=== PATIENT | female | born 1945 | race Two or more races ===

== ENCOUNTER 2020-03-22 14:26 | Emergency (ER) | payer MEDICARE, OTHER ==
[~2020-03-22] VITALS: Ht 162.6 cm; Wt 81.6 kg
--- NOTE | 2020-03-22 15:28 | NUR ---
DR calhoun seen and examined the pt.
[2020-03-22] MEDS ORDERED: BP pill (15:32)
[2020-03-22] MEDS ORDERED: IV NORMAL SALINE 1000 ML BAG IV ONE (15:45)
--- NOTE | 2020-03-22 16:52 | NUR ---
Pt's tj Garciaphone #[phone].
[2020-03-22 17:24] LABS: *BILIRUBIN,URIN NEGATIVE (NEGATIVE); *BLOOD, URINE NEGATIVE (NEGATIVE); *CLARITY,URINE CLEAR (CLEAR); *COLOR,URINE YELLOW (YELLOW); *KETONES,URINE NEGATIVE (NEGATIVE); *UROBILINOGEN,URINE 0.2 E.U./dl (NORMAL); LEUKOCYTE ESTERASE ,URINE NEGATIVE (NEGATIVE); NITRITE, URINE NEGATIVE (NEGATIVE); UGLUCOSE NEGATIVE (NEGATIVE)
[2020-03-22 17:28] LABS: BILIRUBIN,DIRECT 0.1 mg/dL (0.0-0.2); BILIRUBIN,TOTAL 0.6 mg/dL (0.2-1.0); CREATININE 1.3 mg/dL (0.6-1.3); TOTAL PROTEIN, SERUM 7.9 g/dL (6.4-8.2)
--- NOTE | 2020-03-22 17:50 | NUR ---
PATIENT MOVED TO ROOM 04A.
[2020-03-22] MEDS ORDERED: ASPIRIN 325 MG TABLET PO ONE (18:15)
[2020-03-22 18:22] LABS: BASOPHILS # (AUTO) 0.3 K/uL (0.0-8.0); EOSINOPHILS # (AUTO) 0.1 K/uL (0.0-0.7); EOSINOPHILS % (AUTO) 1.3 % (0.0-7.0); HEMOGLOBIN 14.2 g/dL (10.9-14.3); LYMPHOCYTES # (AUTO) 1.8 K/uL (20.0-40.0); MEAN CORPUSCULAR HEMOGLOBIN 30.1 uug (24.7-32.8); MEAN CORPUSCULAR HGB CONC 34 g/dL (32.3-35.6); MEAN CORPUSCULAR VOLUME 88.6 fL (75.5-95.3); MONOCYTES # (AUTO) 0.4 K/uL (2.0-10.0); MONOCYTES % (AUTO) 5.5 % (0.0-11.0); NEUTROPHILS # (AUTO) 5.2 K/uL (1.8-8.9); NEUTROPHILS % (AUTO) 66.2 % (38.5-71.5); RED BLOOD CELL COUNT(AUTO) 4.74 MIL/uL (3.63-4.92); WHITE BLOOD COUNT (AUTO) 7.8 K/uL (3.8-11.8)
[2020-03-22] MEDS ORDERED: ASPIRIN 325 MG TABLET ONE (18:29)
[2020-03-22 18:38] LABS: PLATELET COUNT (AUTO) 198 K/uL (179-408)
[2020-03-22 18:45] VITALS: BP 172/89
--- NOTE | 2020-03-22 18:49 | NUR ---
Patient does not wish to proceed with medical care recommended by Dr. Bernal. Patient given information related to possible complications, up to and including , which could occur as a result of leaving the hospital at this time. Patient daughter Magdalene verbalizes understanding of risks involved due to leaving against medical advice. Patient has signed AMA form.
[2020-03-23 00:06] LABS: EOSINOPHILS % (MANUAL) 2 % (0-8); LYMPHOCYTES % (MANUAL) 28 % (20-40); MONOCYTES % (MANUAL) 6 % (2-10); NEUTROPHILS % (MANUAL) 64 % (42-75)
== END 2020-03-22 18:53 | disposition left against medical advice (07) ==
LOC: EDBD 14:30 → ER 14:30
DX: G45.9 Transient cerebral ischemic attack, unspecified (principal); Z86.73 Personal history of transient ischemic attack (TIA), and cerebral infarction without residual deficits; Z20.828 Contact with and (suspected) exposure to other viral communicable diseases; J98.11 Atelectasis; R94.31 Abnormal electrocardiogram [ECG] [EKG]
CPT/HCPCS: 36415; 70030-TC; 70450; 71045; 83605; 84443; 85025; 85730; 87040; 87086; 93005; A4663

== ENCOUNTER 2022-01-10 10:42 | Inpatient (IN) | payer MEDICARE, OTHER ==
[~2022-01-10] VITALS: Ht 170.2 cm; Wt 95.3 kg
[2022-01-10] VITALS (8 sets, daily range): BP systolic 116–149; BP diastolic 61–106
[~2022-01-10 10:42] MED LIST: BP pill
[2022-01-10 11:09] LABS: *BILIRUBIN,URIN NEGATIVE (NEGATIVE); *CLARITY,URINE CLEAR (CLEAR); *COLOR,URINE YELLOW (YELLOW); *KETONES,URINE 1+ (NEGATIVE); *UROBILINOGEN,URINE >=8.0 E.U./dl (NORMAL); LEUKOCYTE ESTERASE ,URINE 3+ (NEGATIVE); NITRITE, URINE POSITIVE (NEGATIVE); UGLUCOSE NEGATIVE (NEGATIVE)
[2022-01-10 11:12] LABS: *BLOOD, URINE TRACE (NEGATIVE)
[2022-01-10 11:17] LABS: HEMATOCRIT 39.6 % (31.2-41.9); PLATELET COUNT (AUTO) 362 K/uL (179-408)
[2022-01-10 11:27] LABS: CREATININE 0.6 mg/dL (0.6-1.3); POTASSIUM 3.2 mmol/L (3.5-5.1)
[2022-01-10] MEDS ORDERED: METOPROLOL (11:35)
[2022-01-10] MEDS ORDERED: MUL (11:35)
[2022-01-10] MEDS ORDERED: FUROSEMIDE (11:35)
[2022-01-10] MEDS ORDERED: ELIQ (11:35)
[2022-01-10] MEDS ORDERED: TAMSULOSIN (11:35)
[2022-01-10] MEDS ORDERED: METFORMIN (11:35)
--- NOTE | 2022-01-10 11:36 | NUR ---
"Plan to admit" per Dr Medina. ER registration/admitting staff Sterling notified.
[2022-01-10 11:47] LABS: BILIRUBIN,DIRECT 0.3 mg/dL (0.0-0.2); BILIRUBIN,TOTAL 1.1 mg/dL (0.2-1.0); TOTAL PROTEIN, SERUM 6.9 g/dL (6.4-8.2)
--- NOTE | 2022-01-10 12:09 | NUR ---
Kaylah-anal care done by PERLA Milton and 2 nursing students.
[2022-01-10] MEDS ORDERED: CEFTRIAXONE 1 G in IV DEXTROSE 5% 50 ML IV ONE (12:30)
[2022-01-10] MEDS ORDERED: FUROSEMIDE 40 MG/4 ML VIAL IV ONE (12:30)
[2022-01-10] MEDS: METOPROLOL TARTRATE 50 MG TABLET PO SCH ×2 (12:30→17:00)
[2022-01-10] MEDS: BLOOD SUGAR DIAGNOSTIC 1 EACH STRIP VI SCH ×5 (12:30→23:07)
[2022-01-10] MEDS ORDERED: LABETALOL HCL 100 MG/20 ML VIAL IV PRN (12:30)
[2022-01-10] MEDS ORDERED: INSULIN REGULAR, HUMAN 300 UNIT/3 ML VIAL SQ PRN (12:30)
[2022-01-10] MEDS ORDERED: MORPHINE SULFATE 2 MG/1 ML DISP.SYRIN IV PRN (12:30)
[2022-01-10] MEDS ORDERED: ONDANSETRON 4 MG/2 ML VIAL IV PRN (12:30)
[2022-01-10] MEDS ORDERED: DEXTROSE 50% 50 ML DISP.SYRIN IV PRN ×2 (12:30→17:46)
[2022-01-10] MEDS ORDERED: CEFTRIAXONE /D5W 50ML IVPB **ER PYXIS IV ONE (12:31)
[2022-01-10] MEDS ORDERED: FUROSEMIDE 40 MG/4 ML VIAL ONE (12:31)
--- NOTE | 2022-01-10 12:41 | NUR ---
* NPO maintained and patient's gastrostomy tube has to be replaced or repositioned by MD before I can use this tube for oral medicines. MD notified.
--- NOTE | 2022-01-10 12:43 | NUR ---
* buoaupfhc=950 mg/dl at 1111am today. is aware.
--- NOTE | 2022-01-10 12:45 | NUR ---
Patient is more awake, eyes are tracking at this time, still non-verbal, no purposeful movements of her extremities.
[2022-01-10 13:05] LABS: BACTERIA,URINE MANY /HPF (NONE SEEN); RBC,URINE 0-3 /HPF (0-3); SQUAMOUS EPITHELIAL CELL,UR FEW /HPF (NONE SEEN)
--- NOTE | 2022-01-10 14:58 | NUR ---
Dr Scruggs made aware patient had frequent periods of Afib. MD order to start Amio drip per protocol. Also, order to transfer to [facility]. will continue to monitor.
[2022-01-10] MEDS ORDERED: AMIODARONE HCL IV 150 MG in IV DEXTROSE 5% 100 ML IV ONE (16:00)
[2022-01-10] MEDS: AMIODARONE HCL IV 450 MG in IV DEXTROSE 5% 250 ML IV PRN (16:51)
[2022-01-10] MEDS: DOCUSATE SODIUM 100 MG CAPSULE PO SCH (17:00)
--- NOTE | 2022-01-10 17:21 | NUR ---
Dr Medley made aware of the events today. changed accucheck to q6. remained on NPO. Start Lovenox.
[2022-01-10] MEDS: ENOXAPARIN SODIUM 100 MG/ML DISP.SYRIN SQ SCH (17:55)
--- NOTE | 2022-01-10 18:10 | NUR ---
Patient was admitted to Telemetry unit from ER. Pt. is nonverbal and admitted due to dislodge gastrostomy tube. Pt. is not able to move extremities. Has Galo catheter and yellow color urine noted in the bag. All personal belonging documented. will continue monitoring the resident. Addendum: 01/10/22 at 1923 by CORTNEY AZUL RN PT. was admitted at 1400 H
--- NOTE | 2022-01-10 19:30 | NUR ---
No new events noted. Patient remained the same on monitor. Will endorse for continuity of care.
[2022-01-10] MEDS: FUROSEMIDE 40 MG/4 ML VIAL IV SCH (20:18)
[2022-01-10] MEDS ORDERED: HEPARIN SODIUM,PORCINE 5,000 UNITS/ML VIAL SQ SCH (21:00)
--- NOTE | 2022-01-10 21:21 | NUR ---
INCENTIVE SPIROMETER ORDERS REVIEWED. DIRECTIONS GIVEN TO PATIENT. PATIENT IS NON VERBAL AND DID NOT SHOW EVIDENCE OF UNDERSTANDING. WILL LIKELY NEED CONTINUED TEACHING AND DIRECTIONS IN USING INCENTIVE SPIROMETER.
[2022-01-10] MEDS: INSULIN REGULAR, HUMAN 300 UNIT/3 ML VIAL SQ PRN (23:09)
[2022-01-11] VITALS (7 sets, daily range): BP systolic 120–168; BP diastolic 72–100
[2022-01-11] MEDS: AMIODARONE HCL IV 450 MG in IV DEXTROSE 5% 250 ML IV PRN ×2 (02:15→15:41)
[2022-01-11] MEDS: BLOOD SUGAR DIAGNOSTIC 1 EACH STRIP VI SCH ×4 (05:55→23:20)
[2022-01-11] MEDS: INSULIN REGULAR, HUMAN 300 UNIT/3 ML VIAL SQ PRN ×3 (05:56→23:22)
[2022-01-11 06:41] LABS: HEMATOCRIT 37.3 % (31.2-41.9); MEAN CORPUSCULAR HEMOGLOBIN 29.7 uug (24.7-32.8); MEAN CORPUSCULAR VOLUME 87.4 fL (75.5-95.3); PLATELET COUNT (AUTO) 361 K/uL (179-408)
[2022-01-11 07:15] LABS: CREATININE 0.7 mg/dL (0.6-1.3); PHOSPHOROUS 4.1 mg/dL (2.5-4.9); TOTAL PROTEIN, SERUM 6.9 g/dL (6.4-8.2)
[2022-01-11 08:13] LABS: POTASSIUM 2.7 mmol/L (3.5-5.1)
[2022-01-11] MEDS: FUROSEMIDE 40 MG/4 ML VIAL IV SCH (08:13)
[2022-01-11] MEDS: DOCUSATE SODIUM 100 MG CAPSULE PO SCH ×2 (09:00→17:00)
[2022-01-11] MEDS: METOPROLOL TARTRATE 50 MG TABLET PO SCH ×2 (09:00→17:00)
[2022-01-11] MEDS: ENOXAPARIN SODIUM 100 MG/ML DISP.SYRIN SQ SCH ×2 (09:09→21:00)
[2022-01-11] MEDS: POTASSIUM CHLORIDE 50 ML IV SCH ×4 (09:37→12:42)
--- NOTE | 2022-01-11 10:50 | NUR ---
WOUND CARE CONSULT: PT PRESENTS WITH RASH TO RT AXILLA AREA, REDNESS TO SKIN FOLDS, LARGE RAISED AREA TO RT ARM AND LEFT HEEL DRY WOUND, ALL PRESENT ON ADMISSION. DR MCFADDEN CALLED FOR DPM CONSULT. ALL SKIN PROTECTION RECOMMENDATIONS DISCUSSED WITH NURSING STAFF. FIRST STEP LOW AIRLOSS MATTRESS IS ON ORDER. DAYNA ESCOTO NOTED. IN AGREEMENT WITH PLAN OF CARE. Addendum: 01/11/22 at 1051 by SHEREEN GONCALVES RN Amended: Links added.
[2022-01-11] MEDS ORDERED: REMEDY ESSENTIAL ZINC PASTE 113 GM TOP PRN (12:00)
[2022-01-11] MEDS ORDERED: DRON400T PO (12:02)
[2022-01-11] MEDS ORDERED: METO50TA16 PO (12:02)
[2022-01-11] MEDS ORDERED: METF-440 PO (12:02)
[2022-01-11] MEDS ORDERED: FURO20TA4 PO (12:02)
[2022-01-11] MEDS ORDERED: APIX5TAB PO (12:02)
[2022-01-11] MEDS ORDERED: TAMS-3 PO (12:06)
[2022-01-11] MEDS ORDERED: ROSU10TA2 PO (12:06)
[2022-01-11] MEDS ORDERED: MAGN400T8 PO (12:16)
[2022-01-11] MEDS: CEFTRIAXONE 1 G in IV DEXTROSE 5% 50 ML IV SCH ×4 (13:00→14:27)
[2022-01-11] MEDS: CLOTRIMAZOLE 1% CREAM 30 GM TUBE TOP SCH ×2 (13:40→20:58)
[2022-01-11] MEDS: NYSTATIN SUSPENSION 5 ML LIQUID UDC PO SCH ×3 (13:40→21:00)
[2022-01-11] MEDS: hydrALAZINE HCL 20 MG/1 ML VIAL IV PRN (15:08)
--- NOTE | 2022-01-11 15:54 | NUR ---
Updated Dr. Andrews regarding Amiodarone drip. Per , we will continue Amiodarone until further order.
--- NOTE | 2022-01-11 19:02 | NUR ---
Pt. is stayed stable during the shift and no significant changes noted, Oral care provided. Low air loss mattress was provided for patient comfort. Pt. will be on Amiodarone drip per Dr. Juliana castellon.
[2022-01-11] MEDS: REMEDY ESSENTIAL ZINC PASTE 113 GM TOP SCH (20:59)
[2022-01-12] VITALS: BP 150/58
[2022-01-12 04:00] VITALS: BP 151/67
[2022-01-12] MEDS: AMIODARONE HCL IV 450 MG in IV DEXTROSE 5% 250 ML IV PRN (04:17)
[2022-01-12] MEDS: BLOOD SUGAR DIAGNOSTIC 1 EACH STRIP VI SCH ×3 (05:15→17:36)
[2022-01-12] MEDS: INSULIN REGULAR, HUMAN 300 UNIT/3 ML VIAL SQ PRN (05:16)
[2022-01-12 05:45] LABS: HEMATOCRIT 38.8 % (31.2-41.9); MEAN CORPUSCULAR HEMOGLOBIN 29.6 uug (24.7-32.8); MEAN CORPUSCULAR VOLUME 87.6 fL (75.5-95.3); PLATELET COUNT (AUTO) 333 K/uL (179-408)
[2022-01-12 06:23] LABS: CARBON DIOXIDE 35 mmol/L (21-32); CHLORIDE 97 mmol/L (98-107); CREATININE 0.5 mg/dL (0.6-1.3); GLUCOSE 144 mg/dL (74-106); MAGNESIUM 1.8 mg/dL (1.8-2.4); PHOSPHOROUS 3.1 mg/dL (2.5-4.9); UREA NITROGEN, BLOOD 10 mg/dL (7-18)
[2022-01-12 06:32] LABS: POTASSIUM 2.8 mmol/L (3.5-5.1)
--- NOTE | 2022-01-12 06:41 | NUR ---
pt's K is 2.8; pt having NSVT x2; referred to Dr Scruggs; new orders made.
[2022-01-12 07:33] VITALS: BP 156/82
[2022-01-12] MEDS: POTASSIUM CHLORIDE 50 ML IV SCH ×8 (07:35→16:00)
[2022-01-12] MEDS: DOCUSATE SODIUM 100 MG CAPSULE PO SCH ×2 (08:16→16:01)
[2022-01-12] MEDS: CLOTRIMAZOLE 1% CREAM 30 GM TUBE TOP SCH ×2 (08:17→16:01)
[2022-01-12] MEDS: METOPROLOL TARTRATE 50 MG TABLET PO SCH ×2 (08:17→16:01)
[2022-01-12] MEDS: REMEDY ESSENTIAL ZINC PASTE 113 GM TOP SCH ×2 (08:17→21:00)
[2022-01-12] MEDS: NYSTATIN SUSPENSION 5 ML LIQUID UDC PO SCH ×4 (08:17→21:05)
[2022-01-12] MEDS: ENOXAPARIN SODIUM 100 MG/ML DISP.SYRIN SQ SCH ×2 (08:24→21:07)
[2022-01-12] MEDS ORDERED: POTASSIUM CHLORIDE 50 ML IV SCH (08:45)
[2022-01-12 11:31] VITALS: BP 170/119
[2022-01-12] MEDS: hydrALAZINE HCL 20 MG/1 ML VIAL IV PRN (12:15)
--- NOTE | 2022-01-12 12:51 | NUR ---
Due to patient being NPO. Coverage not given for current blood sugars at 165. Will endorse information.
--- NOTE | 2022-01-12 15:17 | NUR ---
For myostatin suspension, soaking bedside toothbrush with solution and suctioning at same time to prevent any aspiration.
[2022-01-12 15:41] VITALS: BP 125/67
--- NOTE | 2022-01-12 17:49 | NUR ---
Adonis clay bags completed. Dr. Scruggs notified. Orders to continue Amiodarone if patient converts back to A-Fib. Will endorse information to PM nurse.
[2022-01-12 20:00] VITALS: BP 166/79
[2022-01-13] VITALS: BP 154/82
[2022-01-13 04:00] VITALS: BP 159/72
[2022-01-13] MEDS: BLOOD SUGAR DIAGNOSTIC 1 EACH STRIP VI SCH ×4 (06:00→18:00)
--- NOTE | 2022-01-13 06:00 | NUR ---
--PT CONT. WITH STABLE VS. PT HAS BEEN AFEBRILE. PT HAS BEEN NON-VERBAL/DOESN'T FOLLOW SIMPLE COMMDS. PT OPENS EYES. IV H.L I/P.PT IS HAS MORBITY . AM CARE GIVEN. GT SITE CLAMPED AND INTACT. F/C I/P-U/P >500CC-HUEY/CLR. AM LABS DONE.GEN COND HAS BEEN STABLE, MARIEL RN
[2022-01-13 07:32] LABS: CARBON DIOXIDE 31 mmol/L (21-32); CHLORIDE 99 mmol/L (98-107); CREATININE 0.5 mg/dL (0.6-1.3); GLUCOSE 131 mg/dL (74-106); POTASSIUM 3.7 mmol/L (3.5-5.1); UREA NITROGEN, BLOOD 12 mg/dL (7-18)
[2022-01-13 07:47] VITALS: BP 148/92
[2022-01-13] MEDS: INSULIN REGULAR, HUMAN 300 UNIT/3 ML VIAL SQ PRN (08:51)
[2022-01-13] MEDS: DOCUSATE SODIUM 100 MG CAPSULE PO SCH ×2 (09:00→17:00)
[2022-01-13] MEDS: REMEDY ESSENTIAL ZINC PASTE 113 GM TOP SCH ×2 (09:00→21:14)
[2022-01-13] MEDS: METOPROLOL TARTRATE 50 MG TABLET PO SCH ×2 (09:00→17:00)
[2022-01-13] MEDS: CLOTRIMAZOLE 1% CREAM 30 GM TUBE TOP SCH ×2 (09:00→17:00)
[2022-01-13] MEDS: NYSTATIN SUSPENSION 5 ML LIQUID UDC PO SCH ×4 (09:54→21:12)
[2022-01-13] MEDS: ENOXAPARIN SODIUM 100 MG/ML DISP.SYRIN SQ SCH ×2 (10:01→21:16)
[2022-01-13 11:34] VITALS: BP 176/86
[2022-01-13] MEDS: CEFTRIAXONE 1 G in IV DEXTROSE 5% 50 ML IV SCH (12:18)
[2022-01-13] MEDS: hydrALAZINE HCL 20 MG/1 ML VIAL IV PRN (13:31)
[2022-01-13 15:43] VITALS: BP 134/86
--- NOTE | 2022-01-13 18:00 | NUR ---
0700--1830--PT CONT. WITH STABLE VS. PT OPENS EYES TO NOXIOUS AND PAINFUL STIMULI AND SEEMS TO TRACK AT TIMES BUT PT DOESN'T FOLLOW SIMPLE COMMDS. IVS I/P VIA R/L AC-H.L AND L. ARM TKO. PT HAS BEEN IN SR. ARRHYTHMIA. PT HAD OCCASS.PVC'S. PT'S DAUGHTER CONTACTED FOR ORDER FOR EGD AND PEG PLACEMENT. PT DID NOT WANT TO CONSENT FOR THE SURG UNTIL SHE SPOKE TO THE DOCTOR. GI CALLED AND INFORMED AND SPOKE TO PT------. PT CALLED BACK AND GAVE A TELEPHONE CONSENT WITH 2RNS WITNESS(MYSELF AND PERLA LUNDBERG). STAFF TAMIKA IS AWARE. F/C I/P-U/OADEQ. OR TEAM ARRIVED AND TOOK PT TO SURGERY VIA GUERNEY/ACLS PROTOCOL. PT ENDORSEDB TO PERLA BURDICK IN STABLE BUT GUARDED COND. ALSO, PT GETS ACCUCHECKS BUT UNABLE TO COVER VIA SL. SCALE BECAUSE PT IS NPO WITH NO IVF OR T.FEEDING. WILDLIFE MANAGER MOUSTAPHA INFORMED. LAST ACCUCHECK WAS 151 AT 1200. BATH AND SKIN CARE DONE. COLOR PRINTER OPERATOR WAS IN EARLIER TO EVAL PT. MARIEL DUNCAN
[2022-01-13 20:00] VITALS: BP 136/84
--- NOTE | 2022-01-13 20:00 | NUR ---
RECEIVED PATIENT AT THIS TIME FROM GASTROSTOMY REPLACEMENT SURGERY. PATIENT IS ALERT WITH NO VERBAL RESPONSE. NO DISTRESS NOTED UPON ARRIVAL TO THE UNIT. ON 2L NC. RIGHT AC, LEFT AC AND LEFT HAND ARE INTACT AND PATENT. NPO STATUS. NO SIGNS OF INFECTION AROUND G-TUBE. INFORMED TO NOT USE FEEDING TUBE UNTIL MORNING. ABDOMINAL BINDER APPLIED. ON HOURLY V/S MONITORING. SAFETY AND COMFORT MEASURES ENFORCED.
[2022-01-13] MEDS ORDERED: PROPOFOL 200 MG/20 ML BOTTLE ONE (20:09)
[2022-01-13] MEDS ORDERED: LIDOCAINE-MPF 2% 5 ML VIAL ONE (20:09)
[2022-01-13] MEDS ORDERED: CEFAZOLIN 1 G VIAL ONE ×2 (20:09)
[2022-01-14] VITALS (7 sets, daily range): BP systolic 71–105; BP diastolic 37–87
[2022-01-14] MEDS: BLOOD SUGAR DIAGNOSTIC 1 EACH STRIP VI SCH ×5 (00:08→23:29)
[2022-01-14] MEDS: INSULIN REGULAR, HUMAN 300 UNIT/3 ML VIAL SQ PRN ×5 (00:18→23:41)
[2022-01-14] MEDS: ACETAMINOPHEN 325 MG TABLET PO PRN ×2 (06:08→08:35)
--- NOTE | 2022-01-14 06:56 | NUR ---
PATIENT RESTED COMFORTABLY IN BED THROUGHOUT THE NIGHT. NO DISTRESS NOTED AT THIS TIME. ON 2L NC. RIGHT AC, LEFT AC AND HAND ARE INTACT AND PATENT. NPO STATUS. NO SIGNS OF INFECTION AROUND G-TUBE. ORAL CARE DONE. NO SIGNS OF DIABETIC CRISIS NOTED AT THIS TIME. SAFETY AND COMFORT MEASURES MAINTAINED.
--- NOTE | 2022-01-14 07:05 | NUR ---
SEEN BY DR URRUTIA WITH ORDERS. SEE NOTES. PATIENT RESTING COMFORTABLY SR/ST WITH MULTIPLE PAC'S, NO SS OF PAIN OR DISTRESS ON 2L NC SATURATING 97%.
[2022-01-14] MEDS: METOPROLOL TARTRATE 50 MG TABLET PO SCH ×2 (08:35→16:44)
[2022-01-14] MEDS: CLOTRIMAZOLE 1% CREAM 30 GM TUBE TOP SCH ×2 (08:36→16:40)
[2022-01-14] MEDS: AMIODARONE HCL 200 MG TABLET PO SCH ×2 (08:36→20:50)
[2022-01-14] MEDS: DOCUSATE SODIUM 100 MG CAPSULE PO SCH ×2 (08:36→16:41)
[2022-01-14] MEDS: NYSTATIN SUSPENSION 5 ML LIQUID UDC PO SCH ×5 (08:36→20:50)
[2022-01-14] MEDS: REMEDY ESSENTIAL ZINC PASTE 113 GM TOP SCH ×2 (08:37→20:53)
[2022-01-14] MEDS: APIXABAN 5 MG TABLET PO SCH ×2 (08:38→20:55)
[2022-01-14] MEDS ORDERED: APIXABAN 2.5 MG TABLET PO SCH (09:00)
--- NOTE | 2022-01-14 09:00 | NUR ---
DR JARAMILLO CALLED AND SAID TO START FEEDING SLOWLY TOLERATED. AWAITING DIETARY RECOMMENDATION.
[2022-01-14] MEDS ORDERED: GLUCERNA 1.2 1000ML LIQUID GT PRN (10:30)
[2022-01-14] MEDS ORDERED: IV NS 1000 ML 1,000 ML IV PRN (11:45)
[2022-01-14] MEDS: CEFTRIAXONE 1 G in IV DEXTROSE 5% 50 ML IV SCH (11:49)
--- NOTE | 2022-01-14 18:00 | NUR ---
TOLERATING FEEDING WELL NO SIGNS OF LEAKAGE OR RESIDUAL. REMAINS SR ON MONITOR.
--- NOTE | 2022-01-14 19:30 | NUR ---
RECEIVED PATIENT FOUND COMFORTABLY IN BED. ALERT WITH NONVERBAL RESPONSE. NO DISTRESS NOTED AT THIS TIME. RIGHT AC, LEFT AC AND LEFT HAND IV SITE IS INTACT AND PATENT. SR WITH ON/OFF PAC ON TELE MONITOR, HR 93. GTF RUNNING AT 30CC/HR, NO COMPLICATIONS AT THIS TIME. NO SIGNS OF DIABETIC CRISIS NOTED AT THIS TIME. MCINTOSH CLEAN AND INTACT. SAFETY AND COMFORT MEASURES ARE ENFORCED.
[2022-01-15 00:40] VITALS: BP 105/87
[2022-01-15 03:30] VITALS: BP 128/43
[2022-01-15] MEDS: ACETAMINOPHEN 325 MG TABLET PO PRN (03:31)
--- NOTE | 2022-01-15 04:00 | NUR ---
0400-Patient appears pale and mouth breathing audible. Face cool to touch. HR on tele 68/min. Tried to get BP but unable to read on the vital sign machine. O2 saturation unable to read on the monitor as well. Then noted with apnea lasting 5 second with agonal breathing intermittently. machine tool technology instructor reported HR fluctuating between 42-48/min. 0407-Called rapid response, but noted patient stop breathing. 0409-Called Code blue. 0410- Code blue initiated, ER Dr at bedside, Dr Medina. See code blue sheet for details. 0420- Kerry Cotter RN called family and gave patient condition/status. 0425- Patient apneic for 5 mins. pupils fixed and dilated. No audible heart tone.No breath sounds for 1 min. No palpable pulses. No corneal reflexes. Patient asystole on compositor apprentice. Patient pronounce by Dr. Medina. 0430- Notified family, spoke to daughter Aleta Damon . Per daughter belongings will go to [id number] 0445-post mortem care provided. 0500-Daughter at bedside. 0508- Mattie/Mago notified of patient . 0509-ALLEN Andersen notified of patient . 0514-Called [facility] office still awaiting answer. 0604- Still on hold with [facility], no answer yet at this time.
--- NOTE | 2022-01-15 06:07 | NUR ---
Spoke to Recording from [facility] office, informed of patient and gave needed information and stated that this is not a [facility] case.
== END 2022-01-15 04:25 | DRG 393 ==
LOC: ER 10:42 → TRANSITION 13:17 → TELE3 13:43 → TELE-TD3 15:35 → TELE3 01-14 06:46
PROVIDERS: ADMIT Internal Medicine; ATTEND Nurse Practitioner Acute Care
PROC: 0DP68UZ Removal of Feeding Device from Stomach, Via Natural or Artificial Opening Endoscopic (ICD-10-PCS; principal; 2022-01-13)
PROC: 0DH68UZ Insertion of Feeding Device into Stomach, Via Natural or Artificial Opening Endoscopic (ICD-10-PCS; 2022-01-13)
PROC: 5A12012 Performance of Cardiac Output, Single, Manual (ICD-10-PCS; 2022-01-15)
DX: K94.23 Gastrostomy malfunction (principal); G93.41 Metabolic encephalopathy; I50.33 Acute on chronic diastolic (congestive) heart failure; R53.2 Functional quadriplegia; J96.21 Acute and chronic respiratory failure with hypoxia; N39.0 Urinary tract infection, site not specified; E87.3 Alkalosis; I11.0 Hypertensive heart disease with heart failure; E11.9 Type 2 diabetes mellitus without complications; E78.5 Hyperlipidemia, unspecified; Z20.822 Contact with and (suspected) exposure to COVID-19; E87.6 Hypokalemia; I48.0 Paroxysmal atrial fibrillation; R13.10 Dysphagia, unspecified; Z86.73 Personal history of transient ischemic attack (TIA), and cerebral infarction without residual deficits; R62.7 Adult failure to thrive; Z79.01 Long term (current) use of anticoagulants; Z87.440 Personal history of urinary (tract) infections; Z68.32 Body mass index [BMI] 32.0-32.9, adult; S91.302A Unspecified open wound, left foot, initial encounter; X58.XXXA Exposure to other specified factors, initial encounter; Y93.9 Activity, unspecified; Y92.89 Other specified places as the place of occurrence of the external cause; R57.8 Other shock; Z79.84 Long term (current) use of oral hypoglycemic drugs
CPT/HCPCS: 36415; 71045; 83690; 83735; 84100; 84484; 85025; 87040; 87077; 87086; 93005; 93307; A4649; A4663; A6209; A6213; G0378; J0282; J0360; J0690; J0696; J1650; J1940; J3480; J3490; J7040; J7050